=== PATIENT | female | born 1940 | race African-American/Black ===

== ENCOUNTER 2020-10-20 09:48 | Emergency (ER) | payer MEDICARE, MEDICAID ==
[2020-10-20 10:35] LABS: #Basophils 0.1 thou/uL (0.0-0.2); #Eosinphils 0.1 thou/uL (0.0-0.7); #Lymphocytes 2.9 thou/uL (1.20-3.40); #Monocytes 0.7 thou/uL (0.11-0.59); #Neutrophils 9.5 thou/uL (1.40-6.50); %Basophils 0.5 % (0.0-1.0); %Eosinophils 0.5 % (0.0-10.0); %Monocytes 5.2 % (0.0-10.0); %Neutrophils 71.7 % (42.0-75.0); Hemoglobin 13.2 g/dL (12.0-16.0); Mean Corpuscular HGB CONC 30.6 g/dL (32.0-36.0); Mean Corpuscular Hemoglobin 25.3 pg (27.0-31.0); Mean Corpuscular Volume 82.5 fL (78.0-98.0); Mean Platelet Volume 9.2 fL (7.4-10.4); Platelet Count 247 thou/uL (130-400); RBC Distribution Width 14.8 % (11.5-14.5); Red Blood Cell (RBC) Count 5.23 mill/uL (4.20-5.40); White Blood Cell (WBC) Count 13.2 thou/uL (4.8-10.8)
[2020-10-20 10:55] LABS: ALT (SGPT) 34 U/L (8-55); AST (SGOT) 23 U/L (5-34); Albumin 3.8 g/dL (3.4-4.8); Alkaline Phosphatase 131 U/L (40-110); Anion Gap 11 mmol/L (10-20); BUN (Urea Nitrogen) 10 mg/dL (9.8-20.1); Bilirubin, Total 0.3 mg/dL (0.2-1.2); Calc. Creatinine Clearance 0 mL/min (70-130); Calcium 9.2 mg/dL (7.8-10.44); Carbon Dioxide 30 mmol/L (23-31); Chloride 101 mmol/L (98-107); Globulin 3.9 g/dL (2.4-3.5); Glucose 92 mg/dL (83-110); Lipase 28 U/L (8-78); Potassium 3.9 mmol/L (3.5-5.1); Protein, Total 7.7 g/dL (5.8-8.1); Sodium 138 mmol/L (136-145)
[2020-10-20] MEDS ORDERED: Ondansetron PF 4 MG/2 ML Vial ONE (11:01)
[2020-10-20] MEDS ORDERED: Morphine 4 MG/ML VIAL ONE (11:01)
[2020-10-20] MEDS ORDERED: Iopamidol-370 76% 500 ML 1 ML ONE (11:48)
[2020-10-20 14:18] LABS: Bilirubin Negative (Negative); Blood, Urine Negative (Negative); Clarity Turbid (Clear); Glucose, Urine (Dipstick) Normal (Negative); Ketone, Urine Negative (Negative); Leukocyte 500 Leu/uL (Negative); Nitrite 1+ (Negative); Protein, Urine (Dipstick) 20 mg/dL (Neg-Trace); Transitional Epithelial 0-3 HPF (None Seen); Triple Phosphate Crystal Rare HPF (None Seen); Urobilinogen Normal mg/dL (Less than 2); WBC/HPF Greater than 50 HPF (0-3); pH, Urine 8.5 (5.0-9.0)
[2020-10-20 14:20] LABS: Specific Gravity, Urine 1.057 (1.002-1.036)
[2020-10-20 14:27] LABS: RBC/HPF 0-3 HPF (0-3)
[2020-10-20 14:28] LABS: Bacteria/HPF 4+ HPF (None Seen); Yeast-Budding None Seen HPF (None Seen)
[2020-10-20] MEDS ORDERED: cefTRIAXone\\ROCEPHIN 2 GM VIAL ONE (14:51)
== END 2020-10-20 17:26 ==
LOC: ERS 09:48
DX: N39.0 Urinary tract infection, site not specified (principal); E78.00 Pure hypercholesterolemia, unspecified; I25.2 Old myocardial infarction; I11.0 Hypertensive heart disease with heart failure; I50.9 Heart failure, unspecified; E11.9 Type 2 diabetes mellitus without complications; Z79.82 Long term (current) use of aspirin; Z79.899 Other long term (current) drug therapy; Z79.4 Long term (current) use of insulin
CPT/HCPCS: 36415; 51701; 74177; 80053; 81003; 81015; 83605; 83690; 84484; 85025; 93005; 96374; 96375; J0696; J2270; J2405; Q9967

== ENCOUNTER 2020-11-06 16:49 | Emergency (ER) | payer MEDICARE, OTHER ==
[~2020-11-06 16:49] MED LIST: Iopamidol-370 76% 500 ML 1 ML ONE
[2020-11-06] MEDS ORDERED: Dicyclomine 20 MG TAB ONE (17:38)
[2020-11-06 18:26] LABS: #Basophils 0.1 thou/uL (0.0-0.2); #Eosinphils 0.1 thou/uL (0.0-0.7); #Lymphocytes 3.3 thou/uL (1.20-3.40); #Monocytes 0.8 thou/uL (0.11-0.59); %Basophils 0.5 % (0.0-1.0); %Eosinophils 0.6 % (0.0-10.0); %Lymphocytes 21.6 % (21.0-51.0); %Monocytes 5.3 % (0.0-10.0); %Neutrophils 72.1 % (42.0-75.0); Mean Corpuscular HGB CONC 29.8 g/dL (32.0-36.0); Mean Corpuscular Hemoglobin 24.6 pg (27.0-31.0); Mean Corpuscular Volume 82.6 fL (78.0-98.0); Mean Platelet Volume 9.6 fL (7.4-10.4); Platelet Count 248 thou/uL (130-400); RBC Distribution Width 14.7 % (11.5-14.5); Red Blood Cell (RBC) Count 5.29 mill/uL (4.20-5.40); White Blood Cell (WBC) Count 15.3 thou/uL (4.8-10.8)
[2020-11-06 18:45] LABS: Hypochromia SLIGHT = 6-15 cells (100X) (0-5/hpf); MDiff Complete? YES; Platelet Morphology Comment Appears Adequate
[2020-11-06 18:52] LABS: ALT (SGPT) 28 U/L (8-55); AST (SGOT) 21 U/L (5-34); Albumin 3.8 g/dL (3.4-4.8); Alkaline Phosphatase 118 U/L (40-110); Anion Gap 12 mmol/L (10-20); BUN (Urea Nitrogen) 13 mg/dL (9.8-20.1); Bilirubin, Total 0.2 mg/dL (0.2-1.2); Calc. Creatinine Clearance 0 mL/min (70-130); Calcium 9.2 mg/dL (7.8-10.44); Carbon Dioxide 28 mmol/L (23-31); Chloride 99 mmol/L (98-107); Globulin 4.1 g/dL (2.4-3.5); Glucose 142 mg/dL (83-110); Lipase 64 U/L (8-78); Potassium 4.1 mmol/L (3.5-5.1); Protein, Total 7.9 g/dL (5.8-8.1); Sodium 135 mmol/L (136-145)
[2020-11-06 18:54] LABS: Bilirubin Negative (Negative); Blood, Urine Negative (Negative); Clarity Clear (Clear); Glucose, Urine (Dipstick) Normal (Negative); Ketone, Urine Negative (Negative); Leukocyte Negative Leu/uL (Negative); Nitrite Negative (Negative); Protein, Urine (Dipstick) Negative (Neg-Trace); Specific Gravity, Urine 1.009 (1.002-1.036); Urobilinogen Normal mg/dL (Less than 2); pH, Urine 7.5 (5.0-9.0)
== END 2020-11-06 21:29 | disposition home or self-care (01) ==
LOC: ERS 16:49
DX: K86.89 Other specified diseases of pancreas (principal); K59.00 Constipation, unspecified; I25.2 Old myocardial infarction; I25.10 Atherosclerotic heart disease of native coronary artery without angina pectoris; I11.0 Hypertensive heart disease with heart failure; E78.5 Hyperlipidemia, unspecified; I50.9 Heart failure, unspecified; E11.9 Type 2 diabetes mellitus without complications; Z86.73 Personal history of transient ischemic attack (TIA), and cerebral infarction without residual deficits; Z79.82 Long term (current) use of aspirin; Z79.4 Long term (current) use of insulin; Z79.01 Long term (current) use of anticoagulants; Z79.52 Long term (current) use of systemic steroids; Z79.899 Other long term (current) drug therapy
CPT/HCPCS: 36415; 74177; 80053; 81003; 83690; 84484; 85025; 93005; Q9967

== ENCOUNTER 2021-02-16 22:48 | Observation (INO) | payer MEDICARE, MEDICAID ==
[2021-02-17] LABS: #Basophils 0.1 thou/uL (0.0-0.2); #Eosinphils 0.1 thou/uL (0.0-0.7); #Monocytes 0.8 thou/uL (0.11-0.59); #Neutrophils 13.1 thou/uL (1.40-6.50); %Basophils 0.3 % (0.0-1.0); %Eosinophils 0.3 % (0.0-10.0); %Lymphocytes 17.5 % (21.0-51.0); %Monocytes 4.8 % (0.0-10.0); %Neutrophils 77.1 % (42.0-75.0); Hemoglobin 13.3 g/dL (12.0-16.0); Mean Corpuscular HGB CONC 31.2 g/dL (32.0-36.0); Mean Corpuscular Hemoglobin 25.7 pg (27.0-31.0); Mean Corpuscular Volume 82.4 fL (78.0-98.0); Mean Platelet Volume 9.2 fL (7.4-10.4); Platelet Count 236 thou/uL (130-400); RBC Distribution Width 14.7 % (11.5-14.5); Red Blood Cell (RBC) Count 5.18 mill/uL (4.20-5.40)
[2021-02-17 00:28] LABS: ALT (SGPT) 22 U/L (8-55); AST (SGOT) 26 U/L (5-34); Albumin 3.7 g/dL (3.4-4.8); Alkaline Phosphatase 97 U/L (40-110); Anion Gap 18 mmol/L (10-20); BUN (Urea Nitrogen) 16 mg/dL (9.8-20.1); Bilirubin, Total 0.2 mg/dL (0.2-1.2); Calc. Creatinine Clearance 0 mL/min (70-130); Carbon Dioxide 24 mmol/L (23-31); Chloride 97 mmol/L (98-107); Globulin 4.8 g/dL (2.4-3.5); Glucose 116 mg/dL (83-110); Potassium 4.9 mmol/L (3.5-5.1); Protein, Total 8.5 g/dL (5.8-8.1); Sodium 134 mmol/L (136-145)
[2021-02-17 01:58] LABS: SARS-CoV-2 NAA Rapid Test Not Detected (NotDetected)
[2021-02-17] MEDS ORDERED: Enoxaparin Sodium 30 MG/0.3 ML SYRINGE ONE (04:56)
[2021-02-17] MEDS ORDERED: Enoxaparin Sodium 100 MG/ML SYRINGE ONE ×3 (04:56→05:20)
[2021-02-17] MEDS ORDERED: Acetaminophen 325 MG TAB PO PRN (05:08)
[2021-02-17] MEDS ORDERED: Ondansetron PF 4 MG/2 ML Vial IVP PRN (05:08)
[2021-02-17] MEDS ORDERED: Dextrose 50% Abboject 50 ML SYRINGE SLOW IVP PRN (05:15)
[2021-02-17] MEDS ORDERED: Dextrose 5% in Water 1,000 ML IV PRN (05:15)
[2021-02-17] MEDS ORDERED: HumaLOG 300 UNITS/3 ML VIAL SC PRN ×2 (05:15)
[2021-02-17 05:22] LABS: Troponin I 0.066 ng/mL (< 0.028)
[2021-02-17] MEDS ORDERED: Enoxaparin Sodium 120 MG/0.8 ML SYRINGE SC SCH (05:30)
[2021-02-17 08:04] LABS: Magnesium 2.1 mg/dL (1.6-2.6)
[2021-02-17 08:47] LABS: Troponin I 0.102 ng/mL (< 0.028)
[2021-02-17] MEDS ORDERED: Metoprolol Tartrate 25 MG TAB ONE (08:59)
[2021-02-17 09:13] LABS: Bilirubin Negative (Negative); Blood, Urine Negative (Negative); Clarity Turbid (Clear); Glucose, Urine (Dipstick) Normal (Negative); Ketone, Urine Negative (Negative); Leukocyte 75 Leu/uL (Negative); Nitrite Negative (Negative); Protein, Urine (Dipstick) Negative (Neg-Trace); RBC/HPF 0-3 HPF (0-3); Specific Gravity, Urine 1.012 (1.002-1.036); Squamous Epithelial 0-3 HPF (0-3); Urobilinogen Normal mg/dL (Less than 2); pH, Urine 6.5 (5.0-9.0)
[2021-02-17 09:14] LABS: Bacteria/HPF 1+ HPF (None Seen); Urine Culture Reflex Yes Yes
[2021-02-17] MEDS: Metoprolol Tartrate 25 MG TAB PO SCH ×2 (09:14→20:27)
[2021-02-17 11:35] VITALS: BMI 35.8
[2021-02-17] MEDS: Sodium Chloride 0.9% 1,000 ML IV SCH (12:19)
[2021-02-17] MEDS ORDERED: hydrALAZINE 20 MG/ML VIAL SLOW IVP PRN (16:21)
[2021-02-17] MEDS ORDERED: cloNIDine 0.1 MG TAB PO PRN (16:32)
[2021-02-17] MEDS ORDERED: Apixaban 5 MG TAB PO SCH (17:00)
[2021-02-17] MEDS: hydrALAZINE 25 MG TAB PO SCH ×2 (17:42→20:26)
[2021-02-17] MEDS ORDERED: Dronedarone HCl 400 MG TAB PO SCH (17:45)
[2021-02-17] MEDS: metFORMIN 500 MG TAB PO SCH (18:27)
[2021-02-17] MEDS: Ferrous Sulfate 325 MG TAB PO SCH (20:26)
[2021-02-17] MEDS ORDERED: Lantus 1000 UNITS/10 ML VIAL SC SCH (21:00)
[2021-02-17] MEDS ORDERED: Zonisamide 100 MG CAP PO SCH (21:00)
[2021-02-18 06:19] LABS: #Eosinphils 0.1 thou/uL (0.0-0.7); #Lymphocytes 2.7 thou/uL (1.20-3.40); #Monocytes 0.8 thou/uL (0.11-0.59); #Neutrophils 9.1 thou/uL (1.40-6.50); %Basophils 0.3 % (0.0-1.0); %Eosinophils 0.5 % (0.0-10.0); %Lymphocytes 21.4 % (21.0-51.0); %Neutrophils 71.9 % (42.0-75.0); Hemoglobin 12.8 g/dL (12.0-16.0); Mean Corpuscular HGB CONC 32.3 g/dL (32.0-36.0); Mean Corpuscular Hemoglobin 26.3 pg (27.0-31.0); Mean Corpuscular Volume 81.5 fL (78.0-98.0); Mean Platelet Volume 8.8 fL (7.4-10.4); Platelet Count 240 thou/uL (130-400); RBC Distribution Width 14.6 % (11.5-14.5); Red Blood Cell (RBC) Count 4.88 mill/uL (4.20-5.40); White Blood Cell (WBC) Count 12.6 thou/uL (4.8-10.8)
[2021-02-18 06:40] LABS: Anion Gap 14 mmol/L (10-20); BUN (Urea Nitrogen) 12 mg/dL (9.8-20.1); Calc. Creatinine Clearance 98 mL/min (70-130); Calcium 9.5 mg/dL (7.8-10.44); Carbon Dioxide 25 mmol/L (23-31); Chloride 102 mmol/L (98-107); Glucose 80 mg/dL (83-110); Magnesium 2.1 mg/dL (1.6-2.6); Sodium 137 mmol/L (136-145)
[2021-02-18] MEDS ORDERED: Dronedarone HCl 400 MG TAB PO SCH (08:00)
[2021-02-18] MEDS: hydrALAZINE 25 MG TAB PO SCH (08:06)
[2021-02-18] MEDS: Ferrous Sulfate 325 MG TAB PO SCH (08:07)
[2021-02-18] MEDS: metFORMIN 500 MG TAB PO SCH (08:07)
[2021-02-18] MEDS: Metoprolol Tartrate 25 MG TAB PO SCH (08:08)
[2021-02-18] MEDS ORDERED: Spironolactone 25 MG TAB PO SCH (09:00)
[2021-02-18] MEDS ORDERED: Nitrofurantoin Monohyd/M-Cryst 100 MG CAP PO SCH (09:00)
[2021-02-18] MEDS ORDERED: Apixaban 5 MG TAB PO SCH (09:00)
[2021-02-18] MEDS ORDERED: Furosemide 20 MG TAB PO SCH (09:00)
[2021-02-18] MEDS ORDERED: Amlodipine 10 MG TAB PO SCH (09:00)
[2021-02-18] MEDS ORDERED: Aspirin 325 MG TAB PO SCH (09:00)
[2021-02-18] MEDS ORDERED: Losartan 25 MG TAB PO SCH (09:00)
[2021-02-18] MEDS ORDERED: Ezetimibe 10 MG TAB PO SCH (09:00)
[2021-02-18] MEDS ORDERED: Bisoprolol Fumarate 5 MG TAB PO SCH (09:00)
[2021-02-18 11:25] VITALS: BP 136/67; TEMP 98
[2021-02-18] MEDS: Sodium Chloride 0.9% 1,000 ML IV SCH (12:26)
[2021-02-21] MEDS ORDERED: Dulaglutide [Trulicity] 0.75 MG/0.5 ML Pen.Injctr SC SCH (09:00)
== END 2021-02-18 14:52 ==
LOC: ERS 22:48 → NEURO 02-17 01:40 → ERHOLD 02-17 01:49 → NEURO 02-17 11:24
PROVIDERS: ADMIT Internal Medicine; ATTEND Internal Medicine
DX: I48.91 Unspecified atrial fibrillation (principal); N39.0 Urinary tract infection, site not specified; B96.20 Unspecified Escherichia coli [E. coli] as the cause of diseases classified elsewhere; E87.1 Hypo-osmolality and hyponatremia; D72.829 Elevated white blood cell count, unspecified; I25.10 Atherosclerotic heart disease of native coronary artery without angina pectoris; I11.0 Hypertensive heart disease with heart failure; I50.32 Chronic diastolic (congestive) heart failure; E78.5 Hyperlipidemia, unspecified; E11.9 Type 2 diabetes mellitus without complications; I69.351 Hemiplegia and hemiparesis following cerebral infarction affecting right dominant side; E78.00 Pure hypercholesterolemia, unspecified; K21.9 Gastro-esophageal reflux disease without esophagitis; Z79.4 Long term (current) use of insulin; Z79.82 Long term (current) use of aspirin; Z79.84 Long term (current) use of oral hypoglycemic drugs; Z79.899 Other long term (current) drug therapy; Z95.1 Presence of aortocoronary bypass graft; Z99.3 Dependence on wheelchair; Z20.822 Contact with and (suspected) exposure to COVID-19
CPT/HCPCS: 71045; 80048; 80053; 81001; 82962 ×2; 83735 ×2; 83880; 84443; 84484 ×3; 85025 ×2; 85379; 87077; 87086; 87186; 93005; 93306; G0378 ×3; U0002; 36415; 36416; J1650; J1815; J7050

== ENCOUNTER 2021-03-25 09:30 | Inpatient (IN) | payer MEDICARE, MEDICAID ==
[2021-03-25] MEDS ORDERED: Cefepime 1 GM VIAL ONE (10:01)
[2021-03-25] MEDS ORDERED: Acetaminophen 500 MG TAB ONE (10:01)
[2021-03-25] MEDS ORDERED: Vancomycin 1 GM/200 ML BAG ONE (10:01)
[2021-03-25 10:24] LABS: #Eosinphils 0.1 thou/uL (0.0-0.7); #Lymphocytes 2.8 thou/uL (1.20-3.40); #Monocytes 0.8 thou/uL (0.11-0.59); #Neutrophils 13.8 thou/uL (1.40-6.50); %Eosinophils 0.4 % (0.0-10.0); %Monocytes 4.7 % (0.0-10.0); %Neutrophils 78.8 % (42.0-75.0); Hemoglobin 11.3 g/dL (12.0-16.0); Mean Corpuscular HGB CONC 30.5 g/dL (32.0-36.0); Mean Corpuscular Hemoglobin 25.3 pg (27.0-31.0); Mean Corpuscular Volume 82.9 fL (78.0-98.0); Mean Platelet Volume 8.3 fL (7.4-10.4); Platelet Count 290 thou/uL (130-400); RBC Distribution Width 14.7 % (11.5-14.5); Red Blood Cell (RBC) Count 4.47 mill/uL (4.20-5.40); White Blood Cell (WBC) Count 17.6 thou/uL (4.8-10.8)
[2021-03-25 10:43] LABS: ALT (SGPT) 19 U/L (8-55); AST (SGOT) 17 U/L (5-34); Albumin 3.7 g/dL (3.4-4.8); Alkaline Phosphatase 67 U/L (40-110); Anion Gap 11 mmol/L (10-20); BUN (Urea Nitrogen) 11 mg/dL (9.8-20.1); Bilirubin, Total 0.2 mg/dL (0.2-1.2); Calc. Creatinine Clearance 0 mL/min (70-130); Calcium 9.8 mg/dL (7.8-10.44); Carbon Dioxide 29 mmol/L (23-31); Chloride 99 mmol/L (98-107); Globulin 3.9 g/dL (2.4-3.5); Glucose 141 mg/dL (83-110); Lipase 41 U/L (8-78); Potassium 3.8 mmol/L (3.5-5.1); Protein, Total 7.6 g/dL (5.8-8.1); Sodium 135 mmol/L (136-145)
[2021-03-25 11:20] LABS: Bilirubin Negative (Negative); Blood, Urine Negative (Negative); Clarity Clear (Clear); Glucose, Urine (Dipstick) Normal (Negative); Ketone, Urine Negative (Negative); Leukocyte Negative Leu/uL (Negative); Nitrite Negative (Negative); Protein, Urine (Dipstick) Negative (Neg-Trace); Specific Gravity, Urine 1.034 (1.002-1.036); Urobilinogen Normal mg/dL (Less than 2); pH, Urine 7.5 (5.0-9.0)
[2021-03-25 14:28] LABS: SARS-CoV-2 NAA Rapid Test Not Detected (NotDetected)
[2021-03-25] MEDS ORDERED: Aspirin Chewable 81 MG TAB PO SCH (14:30)
[2021-03-25] MEDS ORDERED: Acetaminophen 325 MG TAB PO PRN (14:38)
[2021-03-25] MEDS ORDERED: HYDROcodone/Acetaminophen 5/325 mg Tablet PO PRN (14:38)
[2021-03-25] MEDS ORDERED: Ondansetron PF 4 MG/2 ML Vial IVP PRN (14:38)
[2021-03-25] MEDS ORDERED: Guaifenesin DM 100-10/5 ML UDCUP PO PRN (14:38)
[2021-03-25] MEDS ORDERED: Senokot S 8.6-50 MG TAB PO PRN (14:38)
[2021-03-25] MEDS ORDERED: Dextrose 5% in Water 1,000 ML IV PRN (14:41)
[2021-03-25] MEDS ORDERED: HumaLOG 300 UNITS/3 ML VIAL SC PRN (14:41)
[2021-03-25] MEDS ORDERED: Dextrose 50% Abboject 50 ML SYRINGE SLOW IVP PRN (14:41)
[2021-03-25 15:50] LABS: Troponin I 0.017 ng/mL (< 0.028)
[2021-03-25] MEDS: Famotidine 20 MG TAB PO SCH (20:41)
[2021-03-26] MEDS: Calcium Carbonate 500 MG ChewTAB PO PRN (00:14)
[2021-03-26] MEDS: Nitroglycerin 0.4 MG TAB (25 Tab Bottle) SL PRN ×3 (00:47→00:58)
[2021-03-26] MEDS ORDERED: Morphine 4 MG/ML VIAL SLOW IVP PRN (02:00)
[2021-03-26 02:04] LABS: Troponin I 0.022 ng/mL (< 0.028)
[2021-03-26 04:55] LABS: #Basophils 0.1 thou/uL (0.0-0.2); #Eosinphils 0.1 thou/uL (0.0-0.7); #Lymphocytes 2.7 thou/uL (1.20-3.40); #Monocytes 0.8 thou/uL (0.11-0.59); #Neutrophils 9.6 thou/uL (1.40-6.50); %Basophils 0.4 % (0.0-1.0); %Eosinophils 1.1 % (0.0-10.0); %Lymphocytes 20.3 % (21.0-51.0); %Monocytes 6.1 % (0.0-10.0); %Neutrophils 72.1 % (42.0-75.0); Hemoglobin A1c 5.5 % (4.0-6.0); Mean Corpuscular HGB CONC 30.3 g/dL (32.0-36.0); Mean Corpuscular Hemoglobin 25.4 pg (27.0-31.0); Mean Corpuscular Volume 83.6 fL (78.0-98.0); Mean Platelet Volume 8.2 fL (7.4-10.4); Platelet Count 253 thou/uL (130-400); RBC Distribution Width 14.7 % (11.5-14.5); Red Blood Cell (RBC) Count 4.34 mill/uL (4.20-5.40); White Blood Cell (WBC) Count 13.3 thou/uL (4.8-10.8)
[2021-03-26 06:24] LABS: Anion Gap 11 mmol/L (10-20); BUN (Urea Nitrogen) 8 mg/dL (9.8-20.1); Calc. Creatinine Clearance 102 mL/min (70-130); Calcium 9.4 mg/dL (7.8-10.44); Carbon Dioxide 27 mmol/L (23-31); Cardiac Risk 2.7 (Less than 4.5); Chloride 104 mmol/L (98-107); Cholesterol 138 mg/dl (< 200 Desired); Glucose 122 mg/dL (83-110); HDL Cholesterol 52 mg/dL (>60 Neg Risk); LDL Cholesterol, Calculated 72 mg/dL; Sodium 138 mmol/L (136-145); Triglycerides 70 mg/dL (Less than 150)
[2021-03-26] MEDS ORDERED: ADENOSINE 60 MG/20 ML VIAL ONE (08:36)
[2021-03-26] MEDS ORDERED: Nitroglycerin 4.9 GM Bottle ONE (08:52)
[2021-03-26] MEDS ORDERED: Enoxaparin Sodium 40 MG/0.4 ML SYRINGE SC SCH (09:00)
[2021-03-26] MEDS ORDERED: Insulin Glargine 8 UNITS in Pre-Filled Syringe 1 EACH SC SCH (09:00)
[2021-03-26] MEDS: Lantus 1000 UNITS/10 ML VIAL SC SCH (10:32)
[2021-03-26] MEDS: Aspirin Chewable 81 MG TAB PO SCH ×2 (10:33→13:25)
[2021-03-26] MEDS: Famotidine 20 MG TAB PO SCH ×3 (10:33→21:38)
[2021-03-26] MEDS ORDERED: Metoprolol Tartrate 25 MG TAB PO SCH ×2 (12:59→21:00)
[2021-03-26] MEDS ORDERED: cloNIDine 0.1 MG TAB PO PRN (13:04)
[2021-03-26] MEDS ORDERED: Dicyclomine 10 MG CAP PO PRN (13:04)
[2021-03-26] MEDS ORDERED: Acetaminophen 325 MG TAB PO PRN (13:04)
[2021-03-26] MEDS: hydrALAZINE 25 MG TAB PO SCH ×2 (17:04→21:38)
[2021-03-26] MEDS: Dronedarone HCl 400 MG TAB PO SCH (17:05)
[2021-03-26] MEDS ORDERED: Apixaban 5 MG TAB PO SCH (21:00)
[2021-03-26] MEDS: Atorvastatin Calcium 40 MG TAB PO SCH (21:37)
[2021-03-26] MEDS: Ezetimibe 10 MG TAB PO SCH (21:37)
[2021-03-26] MEDS: Acetaminophen ER (8hr) 650 MG TAB PO SCH (21:37)
[2021-03-26] MEDS: Metoprolol Tartrate 25 MG TAB PO SCH (21:38)
[2021-03-27 08:13] LABS: Mean Corpuscular HGB CONC 29.8 g/dL (32.0-36.0); Mean Platelet Volume 8.2 fL (7.4-10.4); Platelet Count 289 thou/uL (130-400); RBC Distribution Width 14.8 % (11.5-14.5); White Blood Cell (WBC) Count 12.6 thou/uL (4.8-10.8)
[2021-03-27 08:37] LABS: ALT (SGPT) 21 U/L (8-55); AST (SGOT) 29 U/L (5-34); Albumin 3.5 g/dL (3.4-4.8); Alkaline Phosphatase 67 U/L (40-110); Anion Gap 14 mmol/L (10-20); BUN (Urea Nitrogen) 8 mg/dL (9.8-20.1); Bilirubin, Total 0.3 mg/dL (0.2-1.2); Calc. Creatinine Clearance 86 mL/min (70-130); Calcium 9.2 mg/dL (7.8-10.44); Carbon Dioxide 23 mmol/L (23-31); Chloride 105 mmol/L (98-107); Globulin 4.1 g/dL (2.4-3.5); Glucose 121 mg/dL (83-110); Potassium 4.3 mmol/L (3.5-5.1); Protein, Total 7.6 g/dL (5.8-8.1); Sodium 138 mmol/L (136-145)
[2021-03-27 08:42] LABS: #Eosinphils 0.2 thou/uL (0.0-0.7); #Lymphocytes 2.9 thou/uL (1.20-3.40); #Monocytes 0.8 thou/uL (0.11-0.59); #Neutrophils 8.6 thou/uL (1.40-6.50); %Basophils 0.2 % (0.0-1.0); %Eosinophils 1.3 % (0.0-10.0); %Lymphocytes 23.4 % (21.0-51.0); %Monocytes 6.3 % (0.0-10.0); %Neutrophils 68.7 % (42.0-75.0); Band 1 % (5-11); Eosinophils 1 % (0-10); Hypochromia SLIGHT = 6-15 cells (100X) (0-5/hpf); Lymphocytes 24 % (21-51); MDiff Complete? YES; Monocytes 5 % (0-10); Neutrophil 69 % (42-75); Platelet Morphology Comment Appears Adequate; Polychromasia SLIGHT = 2-3 cells (100X) (0-2/hpf)
[2021-03-27] MEDS: Ascorbic Acid 500 mg Chewable Tablet PO SCH (08:48)
[2021-03-27] MEDS: Zinc Sulfate 220 MG CAP PO SCH (08:48)
[2021-03-27] MEDS: hydrALAZINE 25 MG TAB PO SCH ×4 (08:48→21:14)
[2021-03-27] MEDS: Aspirin Chewable 81 MG TAB PO SCH (08:48)
[2021-03-27] MEDS: Multivitamin W/ Minerals 1 TAB PO SCH (08:49)
[2021-03-27] MEDS: Polyethylene Glycol 3350 17 GM Packet PO SCH (08:50)
[2021-03-27] MEDS: Cholecalciferol 1,000 UNITS (25 MCG) TAB PO SCH (08:50)
[2021-03-27] MEDS: Dronedarone HCl 400 MG TAB PO SCH ×2 (08:50→16:08)
[2021-03-27] MEDS: Metoprolol Tartrate 25 MG TAB PO SCH ×2 (08:50→21:14)
[2021-03-27] MEDS: Amlodipine 10 MG TAB PO SCH (08:50)
[2021-03-27] MEDS: Famotidine 20 MG TAB PO SCH ×2 (08:50→21:11)
[2021-03-27] MEDS: Furosemide 20 MG TAB PO SCH (08:50)
[2021-03-27] MEDS ORDERED: Aspirin 325 MG TAB PO SCH (09:00)
[2021-03-27] MEDS: Lantus 1000 UNITS/10 ML VIAL SC SCH (09:54)
[2021-03-27] MEDS ORDERED: Colchicine 0.6 MG TAB PO SCH (15:00)
[2021-03-27] MEDS: Colchicine 0.6 MG TAB PO SCH (21:12)
[2021-03-27] MEDS: Acetaminophen ER (8hr) 650 MG TAB PO SCH (21:12)
[2021-03-27] MEDS: Atorvastatin Calcium 40 MG TAB PO SCH (21:14)
[2021-03-27] MEDS: Ezetimibe 10 MG TAB PO SCH (21:14)
[2021-03-28 04:30] LABS: #Eosinphils 0.2 thou/uL (0.0-0.7); #Lymphocytes 3.1 thou/uL (1.20-3.40); #Monocytes 0.9 thou/uL (0.11-0.59); #Neutrophils 10.3 thou/uL (1.40-6.50); %Basophils 0.1 % (0.0-1.0); %Eosinophils 1.4 % (0.0-10.0); %Lymphocytes 21.4 % (21.0-51.0); %Monocytes 5.9 % (0.0-10.0); %Neutrophils 71.2 % (42.0-75.0); Hemoglobin 11.6 g/dL (12.0-16.0); Mean Corpuscular HGB CONC 30.8 g/dL (32.0-36.0); Mean Corpuscular Hemoglobin 25.6 pg (27.0-31.0); Mean Corpuscular Volume 83.1 fL (78.0-98.0); Mean Platelet Volume 8.7 fL (7.4-10.4); Platelet Count 294 thou/uL (130-400); RBC Distribution Width 14.9 % (11.5-14.5); Red Blood Cell (RBC) Count 4.55 mill/uL (4.20-5.40); White Blood Cell (WBC) Count 14.5 thou/uL (4.8-10.8)
[2021-03-28 04:46] LABS: ALT (SGPT) 26 U/L (8-55); AST (SGOT) 21 U/L (5-34); Albumin 3.4 g/dL (3.4-4.8); Alkaline Phosphatase 70 U/L (40-110); Anion Gap 13 mmol/L (10-20); BUN (Urea Nitrogen) 8 mg/dL (9.8-20.1); Bilirubin, Total 0.4 mg/dL (0.2-1.2); Calc. Creatinine Clearance 89 mL/min (70-130); Calcium 8.7 mg/dL (7.8-10.44); Carbon Dioxide 27 mmol/L (23-31); Chloride 102 mmol/L (98-107); Globulin 3.6 g/dL (2.4-3.5); Glucose 122 mg/dL (83-110); Potassium 3.6 mmol/L (3.5-5.1); Sodium 138 mmol/L (136-145)
[2021-03-28] MEDS: Multivitamin W/ Minerals 1 TAB PO SCH (08:44)
[2021-03-28] MEDS: Amlodipine 10 MG TAB PO SCH (08:44)
[2021-03-28] MEDS: Aspirin Chewable 81 MG TAB PO SCH (08:44)
[2021-03-28] MEDS: Dronedarone HCl 400 MG TAB PO SCH ×2 (08:45→17:25)
[2021-03-28] MEDS: Lantus 1000 UNITS/10 ML VIAL SC SCH (08:45)
[2021-03-28] MEDS: Zinc Sulfate 220 MG CAP PO SCH (08:45)
[2021-03-28] MEDS: Ascorbic Acid 500 mg Chewable Tablet PO SCH (08:45)
[2021-03-28] MEDS: Metoprolol Tartrate 25 MG TAB PO SCH ×2 (08:45→21:23)
[2021-03-28] MEDS: hydrALAZINE 25 MG TAB PO SCH ×4 (08:45→21:22)
[2021-03-28] MEDS: Famotidine 20 MG TAB PO SCH ×2 (08:45→21:21)
[2021-03-28] MEDS: Colchicine 0.6 MG TAB PO SCH ×2 (08:45→21:21)
[2021-03-28] MEDS: Cholecalciferol 1,000 UNITS (25 MCG) TAB PO SCH (08:45)
[2021-03-28] MEDS: Furosemide 20 MG TAB PO SCH (08:45)
[2021-03-28] MEDS: Polyethylene Glycol 3350 17 GM Packet PO SCH (08:46)
[2021-03-28] MEDS: Acetaminophen ER (8hr) 650 MG TAB PO SCH (21:21)
[2021-03-28] MEDS: Atorvastatin Calcium 40 MG TAB PO SCH (21:22)
[2021-03-28] MEDS: Apixaban 5 MG TAB PO SCH (21:23)
[2021-03-28] MEDS: Ferrous Sulfate 325 MG TAB PO SCH (21:23)
[2021-03-28] MEDS: Ezetimibe 10 MG TAB PO SCH (21:23)
[2021-03-29 04:25] LABS: #Basophils 0.1 thou/uL (0.0-0.2); #Eosinphils 0.2 thou/uL (0.0-0.7); #Lymphocytes 3.5 thou/uL (1.20-3.40); #Monocytes 0.9 thou/uL (0.11-0.59); %Basophils 0.4 % (0.0-1.0); %Eosinophils 1.3 % (0.0-10.0); %Lymphocytes 23.8 % (21.0-51.0); %Monocytes 6.3 % (0.0-10.0); %Neutrophils 68.3 % (42.0-75.0); Hemoglobin 12.8 g/dL (12.0-16.0); Mean Corpuscular HGB CONC 29.9 g/dL (32.0-36.0); Mean Corpuscular Hemoglobin 25.1 pg (27.0-31.0); Mean Corpuscular Volume 83.8 fL (78.0-98.0); Mean Platelet Volume 8.3 fL (7.4-10.4); Platelet Count 303 thou/uL (130-400); RBC Distribution Width 14.7 % (11.5-14.5); Red Blood Cell (RBC) Count 5.11 mill/uL (4.20-5.40); White Blood Cell (WBC) Count 14.7 thou/uL (4.8-10.8)
[2021-03-29 04:36] LABS: ALT (SGPT) 30 U/L (8-55); AST (SGOT) 30 U/L (5-34); Albumin 3.6 g/dL (3.4-4.8); Alkaline Phosphatase 82 U/L (40-110); Anion Gap 11 mmol/L (10-20); BUN (Urea Nitrogen) 8 mg/dL (9.8-20.1); Bilirubin, Total 0.3 mg/dL (0.2-1.2); Calc. Creatinine Clearance 94 mL/min (70-130); Calcium 8.8 mg/dL (7.8-10.44); Carbon Dioxide 25 mmol/L (23-31); Chloride 103 mmol/L (98-107); Globulin 3.8 g/dL (2.4-3.5); Glucose 125 mg/dL (83-110); Potassium 3.6 mmol/L (3.5-5.1); Protein, Total 7.4 g/dL (5.8-8.1); Sodium 135 mmol/L (136-145)
[2021-03-29] MEDS ORDERED: Senokot 8.6 MG TAB PO PRN (07:08)
[2021-03-29] MEDS: Ferrous Sulfate 325 MG TAB PO SCH ×2 (09:31→21:38)
[2021-03-29] MEDS: Aspirin Chewable 81 MG TAB PO SCH (09:31)
[2021-03-29] MEDS: Apixaban 5 MG TAB PO SCH ×2 (09:32→21:38)
[2021-03-29] MEDS: Zinc Sulfate 220 MG CAP PO SCH (09:32)
[2021-03-29] MEDS: Metoprolol Tartrate 25 MG TAB PO SCH ×2 (09:32→21:38)
[2021-03-29] MEDS: Dronedarone HCl 400 MG TAB PO SCH ×2 (09:32→16:43)
[2021-03-29] MEDS: Losartan 25 MG TAB PO SCH (09:32)
[2021-03-29] MEDS: Famotidine 20 MG TAB PO SCH ×2 (09:32→21:38)
[2021-03-29] MEDS: Cholecalciferol 1,000 UNITS (25 MCG) TAB PO SCH (09:32)
[2021-03-29] MEDS: Multivitamin W/ Minerals 1 TAB PO SCH (09:32)
[2021-03-29] MEDS: hydrALAZINE 25 MG TAB PO SCH ×4 (09:32→21:38)
[2021-03-29] MEDS: Furosemide 20 MG TAB PO SCH (09:32)
[2021-03-29] MEDS: Amlodipine 10 MG TAB PO SCH (09:32)
[2021-03-29] MEDS: Ascorbic Acid 500 mg Chewable Tablet PO SCH (09:32)
[2021-03-29] MEDS: Colchicine 0.6 MG TAB PO SCH ×2 (09:32→21:38)
[2021-03-29] MEDS: Lantus 1000 UNITS/10 ML VIAL SC SCH (09:35)
[2021-03-29] MEDS: Polyethylene Glycol 3350 17 GM Packet PO SCH (10:32)
[2021-03-29] MEDS: Acetaminophen ER (8hr) 650 MG TAB PO SCH (21:38)
[2021-03-29] MEDS: Ezetimibe 10 MG TAB PO SCH (21:38)
[2021-03-29] MEDS: Atorvastatin Calcium 40 MG TAB PO SCH (21:39)
[2021-03-30] MEDS: Calcium Carbonate 500 MG ChewTAB PO PRN (00:44)
[2021-03-30 04:45] LABS: #Eosinphils 0.2 thou/uL (0.0-0.7); #Lymphocytes 3.4 thou/uL (1.20-3.40); #Monocytes 1.1 thou/uL (0.11-0.59); #Neutrophils 9.2 thou/uL (1.40-6.50); %Basophils 0.2 % (0.0-1.0); %Eosinophils 1.7 % (0.0-10.0); %Lymphocytes 24.5 % (21.0-51.0); %Monocytes 7.6 % (0.0-10.0); Hemoglobin 12.7 g/dL (12.0-16.0); Mean Corpuscular HGB CONC 30.7 g/dL (32.0-36.0); Mean Corpuscular Hemoglobin 25.2 pg (27.0-31.0); Mean Corpuscular Volume 82.1 fL (78.0-98.0); Mean Platelet Volume 8.7 fL (7.4-10.4); Platelet Count 321 thou/uL (130-400); RBC Distribution Width 14.7 % (11.5-14.5); Red Blood Cell (RBC) Count 5.05 mill/uL (4.20-5.40); White Blood Cell (WBC) Count 13.9 thou/uL (4.8-10.8)
[2021-03-30 05:04] LABS: ALT (SGPT) 36 U/L (8-55); AST (SGOT) 39 U/L (5-34); Albumin 3.5 g/dL (3.4-4.8); Alkaline Phosphatase 97 U/L (40-110); Anion Gap 17 mmol/L (10-20); BUN (Urea Nitrogen) 9 mg/dL (9.8-20.1); Bilirubin, Total 0.3 mg/dL (0.2-1.2); Calc. Creatinine Clearance 81 mL/min (70-130); Calcium 8.8 mg/dL (7.8-10.44); Carbon Dioxide 19 mmol/L (23-31); Chloride 102 mmol/L (98-107); Globulin 3.8 g/dL (2.4-3.5); Glucose 105 mg/dL (83-110); Potassium 3.7 mmol/L (3.5-5.1); Protein, Total 7.3 g/dL (5.8-8.1); Sodium 134 mmol/L (136-145)
[2021-03-30] MEDS: Famotidine 20 MG TAB PO SCH ×2 (11:22→20:44)
[2021-03-30] MEDS: Colchicine 0.6 MG TAB PO SCH ×2 (11:22→20:44)
[2021-03-30] MEDS: Furosemide 20 MG TAB PO SCH (11:23)
[2021-03-30] MEDS: Ascorbic Acid 500 mg Chewable Tablet PO SCH (11:23)
[2021-03-30] MEDS: hydrALAZINE 25 MG TAB PO SCH ×4 (11:23→20:44)
[2021-03-30] MEDS: Multivitamin W/ Minerals 1 TAB PO SCH (11:23)
[2021-03-30] MEDS: Cholecalciferol 1,000 UNITS (25 MCG) TAB PO SCH (11:23)
[2021-03-30] MEDS: Zinc Sulfate 220 MG CAP PO SCH ×2 (11:23→11:27)
[2021-03-30] MEDS: Amlodipine 10 MG TAB PO SCH (11:25)
[2021-03-30] MEDS: Aspirin Chewable 81 MG TAB PO SCH (11:25)
[2021-03-30] MEDS: Apixaban 5 MG TAB PO SCH ×2 (11:25→20:44)
[2021-03-30] MEDS: Metoprolol Tartrate 25 MG TAB PO SCH ×2 (11:25→20:44)
[2021-03-30] MEDS: Losartan 25 MG TAB PO SCH (11:26)
[2021-03-30] MEDS: Polyethylene Glycol 3350 17 GM Packet PO SCH (11:27)
[2021-03-30] MEDS: Dronedarone HCl 400 MG TAB PO SCH ×2 (12:01→17:47)
[2021-03-30] MEDS: Lantus 1000 UNITS/10 ML VIAL SC SCH (12:02)
[2021-03-30] MEDS: Ferrous Sulfate 325 MG TAB PO SCH (12:02)
[2021-03-30] MEDS: Ezetimibe 10 MG TAB PO SCH (20:44)
[2021-03-30] MEDS: Atorvastatin Calcium 40 MG TAB PO SCH (20:44)
[2021-03-30] MEDS: Acetaminophen ER (8hr) 650 MG TAB PO SCH (20:44)
[2021-03-31 04:41] LABS: #Eosinphils 0.2 thou/uL (0.0-0.7); #Lymphocytes 2.8 thou/uL (1.20-3.40); #Monocytes 0.9 thou/uL (0.11-0.59); #Neutrophils 7.9 thou/uL (1.40-6.50); %Basophils 0.3 % (0.0-1.0); %Eosinophils 1.4 % (0.0-10.0); %Lymphocytes 23.9 % (21.0-51.0); %Monocytes 7.5 % (0.0-10.0); %Neutrophils 66.9 % (42.0-75.0); Hemoglobin 12.3 g/dL (12.0-16.0); Mean Corpuscular HGB CONC 30.7 g/dL (32.0-36.0); Mean Corpuscular Hemoglobin 25.5 pg (27.0-31.0); Mean Corpuscular Volume 83.3 fL (78.0-98.0); Mean Platelet Volume 8.1 fL (7.4-10.4); Platelet Count 336 thou/uL (130-400); RBC Distribution Width 14.6 % (11.5-14.5); Red Blood Cell (RBC) Count 4.81 mill/uL (4.20-5.40); White Blood Cell (WBC) Count 11.8 thou/uL (4.8-10.8)
[2021-03-31 05:04] LABS: ALT (SGPT) 33 U/L (8-55); AST (SGOT) 31 U/L (5-34); Albumin 3.5 g/dL (3.4-4.8); Alkaline Phosphatase 95 U/L (40-110); Anion Gap 14 mmol/L (10-20); BUN (Urea Nitrogen) 10 mg/dL (9.8-20.1); Bilirubin, Total 0.3 mg/dL (0.2-1.2); Calc. Creatinine Clearance 88 mL/min (70-130); Calcium 8.9 mg/dL (7.8-10.44); Carbon Dioxide 25 mmol/L (23-31); Chloride 102 mmol/L (98-107); Globulin 3.7 g/dL (2.4-3.5); Glucose 93 mg/dL (83-110); Potassium 3.5 mmol/L (3.5-5.1); Protein, Total 7.2 g/dL (5.8-8.1); Sodium 137 mmol/L (136-145)
[2021-03-31] MEDS ORDERED: Lidocaine 2% Viscous Solution 20 ML, Aluminum & Magnesium Hydroxide 30 ML, Donnatal Eli... SSW SCH (08:00)
[2021-03-31] MEDS: Dronedarone HCl 400 MG TAB PO SCH ×2 (09:39→18:06)
[2021-03-31] MEDS: Famotidine 20 MG TAB PO SCH ×2 (09:39→20:59)
[2021-03-31] MEDS: Cholecalciferol 1,000 UNITS (25 MCG) TAB PO SCH (09:39)
[2021-03-31] MEDS: Multivitamin W/ Minerals 1 TAB PO SCH (09:39)
[2021-03-31] MEDS: Amlodipine 10 MG TAB PO SCH (09:40)
[2021-03-31] MEDS: Colchicine 0.6 MG TAB PO SCH ×2 (09:40→20:58)
[2021-03-31] MEDS: Apixaban 5 MG TAB PO SCH (09:40)
[2021-03-31] MEDS: hydrALAZINE 25 MG TAB PO SCH ×4 (09:40→20:59)
[2021-03-31] MEDS: Losartan 25 MG TAB PO SCH (09:41)
[2021-03-31] MEDS: Metoprolol Tartrate 25 MG TAB PO SCH ×2 (09:41→20:59)
[2021-03-31] MEDS: Ascorbic Acid 500 mg Chewable Tablet PO SCH (09:41)
[2021-03-31] MEDS: Polyethylene Glycol 3350 17 GM Packet PO SCH (09:42)
[2021-03-31] MEDS: Furosemide 20 MG TAB PO SCH (09:43)
[2021-03-31] MEDS: Ferrous Sulfate 325 MG TAB PO SCH (09:43)
[2021-03-31] MEDS: Aspirin Chewable 81 MG TAB PO SCH (09:43)
[2021-03-31] MEDS: Sucralfate 1 GM TAB PO SCH ×3 (15:19→20:58)
[2021-03-31] MEDS: Ezetimibe 10 MG TAB PO SCH (20:58)
[2021-03-31] MEDS: Atorvastatin Calcium 40 MG TAB PO SCH (20:58)
[2021-03-31] MEDS: Acetaminophen ER (8hr) 650 MG TAB PO SCH (20:59)
[2021-04-01 06:58] LABS: #Eosinphils 0.3 thou/uL (0.0-0.7); #Monocytes 0.9 thou/uL (0.11-0.59); #Neutrophils 8.8 thou/uL (1.40-6.50); %Basophils 0.3 % (0.0-1.0); %Lymphocytes 22.7 % (21.0-51.0); %Neutrophils 67.9 % (42.0-75.0); Hemoglobin 13.3 g/dL (12.0-16.0); Mean Corpuscular HGB CONC 30.4 g/dL (32.0-36.0); Mean Corpuscular Hemoglobin 25.9 pg (27.0-31.0); Mean Corpuscular Volume 85.2 fL (78.0-98.0); Mean Platelet Volume 9.1 fL (7.4-10.4); Platelet Count 309 thou/uL (130-400); Red Blood Cell (RBC) Count 5.14 mill/uL (4.20-5.40)
[2021-04-01] MEDS: Sucralfate 1 GM TAB PO SCH ×4 (07:33→20:41)
[2021-04-01] MEDS: Polyethylene Glycol 3350 17 GM Packet PO SCH (07:34)
[2021-04-01] MEDS: hydrALAZINE 25 MG TAB PO SCH ×4 (07:34→20:40)
[2021-04-01] MEDS: Aspirin Chewable 81 MG TAB PO SCH (07:34)
[2021-04-01] MEDS: Ferrous Sulfate 325 MG TAB PO SCH (08:03)
[2021-04-01] MEDS: Ascorbic Acid 500 mg Chewable Tablet PO SCH (08:03)
[2021-04-01] MEDS: Dronedarone HCl 400 MG TAB PO SCH ×2 (08:03→17:56)
[2021-04-01] MEDS: Famotidine 20 MG TAB PO SCH (08:03)
[2021-04-01] MEDS: Multivitamin W/ Minerals 1 TAB PO SCH (08:04)
[2021-04-01] MEDS: Furosemide 20 MG TAB PO SCH (08:04)
[2021-04-01] MEDS: Amlodipine 10 MG TAB PO SCH (08:04)
[2021-04-01] MEDS: Losartan 25 MG TAB PO SCH (08:04)
[2021-04-01] MEDS: Metoprolol Tartrate 25 MG TAB PO SCH ×2 (08:04→20:41)
[2021-04-01] MEDS: Cholecalciferol 1,000 UNITS (25 MCG) TAB PO SCH (08:04)
[2021-04-01] MEDS: Zinc Sulfate 220 MG CAP PO SCH (08:04)
[2021-04-01] MEDS: Colchicine 0.6 MG TAB PO SCH ×2 (08:12→20:40)
[2021-04-01 09:11] LABS: ALT (SGPT) 52 U/L (8-55); AST (SGOT) 51 U/L (5-34); Albumin 3.6 g/dL (3.4-4.8); Alkaline Phosphatase 100 U/L (40-110); Anion Gap 14 mmol/L (10-20); BUN (Urea Nitrogen) 9 mg/dL (9.8-20.1); Bilirubin, Total 0.2 mg/dL (0.2-1.2); Calc. Creatinine Clearance 89 mL/min (70-130); Carbon Dioxide 26 mmol/L (23-31); Chloride 101 mmol/L (98-107); Globulin 4.1 g/dL (2.4-3.5); Glucose 122 mg/dL (83-110); Potassium 3.8 mmol/L (3.5-5.1); Protein, Total 7.7 g/dL (5.8-8.1); Sodium 137 mmol/L (136-145)
[2021-04-01 11:43] VITALS: BMI 36.3
[2021-04-01 11:47] LABS: SARS-CoV-2 PCR by NAA Not Detected (NotDetected)
[2021-04-01] MEDS ORDERED: PROPOFOL 200 MG/20 ML VIAL ONE (12:43)
[2021-04-01] MEDS: Ezetimibe 10 MG TAB PO SCH (20:40)
[2021-04-01] MEDS: Acetaminophen ER (8hr) 650 MG TAB PO SCH (20:41)
[2021-04-01] MEDS: Atorvastatin Calcium 40 MG TAB PO SCH (20:41)
[2021-04-02 05:45] LABS: #Eosinphils 0.2 thou/uL (0.0-0.7); #Lymphocytes 2.9 thou/uL (1.20-3.40); #Monocytes 0.8 thou/uL (0.11-0.59); #Neutrophils 9.8 thou/uL (1.40-6.50); %Basophils 0.3 % (0.0-1.0); %Eosinophils 1.2 % (0.0-10.0); %Lymphocytes 21.2 % (21.0-51.0); %Monocytes 5.7 % (0.0-10.0); %Neutrophils 71.6 % (42.0-75.0); Hemoglobin 13.6 g/dL (12.0-16.0); Mean Corpuscular HGB CONC 31.3 g/dL (32.0-36.0); Mean Corpuscular Hemoglobin 26.1 pg (27.0-31.0); Mean Corpuscular Volume 83.5 fL (78.0-98.0); Mean Platelet Volume 8.4 fL (7.4-10.4); Platelet Count 341 thou/uL (130-400); RBC Distribution Width 14.7 % (11.5-14.5); Red Blood Cell (RBC) Count 5.21 mill/uL (4.20-5.40); White Blood Cell (WBC) Count 13.7 thou/uL (4.8-10.8)
[2021-04-02 06:03] LABS: Anion Gap 12 mmol/L (10-20); BUN (Urea Nitrogen) 9 mg/dL (9.8-20.1); Calc. Creatinine Clearance 91 mL/min (70-130); Calcium 9.2 mg/dL (7.8-10.44); Carbon Dioxide 28 mmol/L (23-31); Chloride 102 mmol/L (98-107); Glucose 109 mg/dL (83-110); Potassium 3.6 mmol/L (3.5-5.1); Sodium 138 mmol/L (136-145)
[2021-04-02] MEDS: Sucralfate 1 GM TAB PO SCH ×4 (07:23→20:23)
[2021-04-02] MEDS: Dronedarone HCl 400 MG TAB PO SCH ×2 (08:42→16:17)
[2021-04-02] MEDS: Losartan 25 MG TAB PO SCH (08:43)
[2021-04-02] MEDS: Aspirin Chewable 81 MG TAB PO SCH (08:43)
[2021-04-02] MEDS: Metoprolol Tartrate 25 MG TAB PO SCH ×2 (08:43→20:23)
[2021-04-02] MEDS: Ferrous Sulfate 325 MG TAB PO SCH (08:43)
[2021-04-02] MEDS: Ascorbic Acid 500 mg Chewable Tablet PO SCH (08:43)
[2021-04-02] MEDS: Furosemide 20 MG TAB PO SCH (08:43)
[2021-04-02] MEDS: Zinc Sulfate 220 MG CAP PO SCH (08:44)
[2021-04-02] MEDS: Colchicine 0.6 MG TAB PO SCH ×2 (08:44→20:23)
[2021-04-02] MEDS: Amlodipine 10 MG TAB PO SCH (08:44)
[2021-04-02] MEDS: Polyethylene Glycol 3350 17 GM Packet PO SCH (08:44)
[2021-04-02] MEDS: Cholecalciferol 1,000 UNITS (25 MCG) TAB PO SCH (08:44)
[2021-04-02] MEDS: hydrALAZINE 25 MG TAB PO SCH ×4 (08:44→20:23)
[2021-04-02] MEDS: Multivitamin W/ Minerals 1 TAB PO SCH (08:44)
[2021-04-02] MEDS: Acetaminophen ER (8hr) 650 MG TAB PO SCH (20:22)
[2021-04-02] MEDS: Ezetimibe 10 MG TAB PO SCH (20:23)
[2021-04-02] MEDS: Atorvastatin Calcium 40 MG TAB PO SCH (20:23)
[2021-04-02 20:27] VITALS: TEMP 97.7
[2021-04-03] MEDS: hydrALAZINE 25 MG TAB PO SCH ×2 (07:54→11:42)
[2021-04-03] MEDS: Zinc Sulfate 220 MG CAP PO SCH (07:55)
[2021-04-03] MEDS: Losartan 25 MG TAB PO SCH (07:55)
[2021-04-03] MEDS: Sucralfate 1 GM TAB PO SCH ×2 (07:55→11:42)
[2021-04-03] MEDS: Metoprolol Tartrate 25 MG TAB PO SCH (07:55)
[2021-04-03] MEDS: Aspirin Chewable 81 MG TAB PO SCH (07:55)
[2021-04-03] MEDS: Ferrous Sulfate 325 MG TAB PO SCH (07:55)
[2021-04-03] MEDS: Amlodipine 10 MG TAB PO SCH (07:56)
[2021-04-03] MEDS: Ascorbic Acid 500 mg Chewable Tablet PO SCH (07:56)
[2021-04-03] MEDS: Dronedarone HCl 400 MG TAB PO SCH (07:56)
[2021-04-03] MEDS: Multivitamin W/ Minerals 1 TAB PO SCH (07:56)
[2021-04-03] MEDS: Furosemide 20 MG TAB PO SCH (07:56)
[2021-04-03] MEDS: Cholecalciferol 1,000 UNITS (25 MCG) TAB PO SCH (07:56)
[2021-04-03 08:22] VITALS: BP 142/70
[2021-04-03] MEDS: Polyethylene Glycol 3350 17 GM Packet PO SCH (08:45)
[2021-04-03] MEDS: Colchicine 0.6 MG TAB PO SCH (10:03)
[2021-04-03 10:24] LABS: #Eosinphils 0.3 thou/uL (0.0-0.7); #Lymphocytes 3.6 thou/uL (1.20-3.40); #Monocytes 1.1 thou/uL (0.11-0.59); #Neutrophils 10.1 thou/uL (1.40-6.50); %Basophils 0.1 % (0.0-1.0); %Eosinophils 2.1 % (0.0-10.0); %Monocytes 7.1 % (0.0-10.0); %Neutrophils 66.7 % (42.0-75.0); Hemoglobin 13.5 g/dL (12.0-16.0); Mean Corpuscular HGB CONC 31.5 g/dL (32.0-36.0); Mean Corpuscular Hemoglobin 25.8 pg (27.0-31.0); Mean Corpuscular Volume 81.9 fL (78.0-98.0); Mean Platelet Volume 9.8 fL (7.4-10.4); Platelet Count 318 thou/uL (130-400); RBC Distribution Width 14.6 % (11.5-14.5); Red Blood Cell (RBC) Count 5.24 mill/uL (4.20-5.40); White Blood Cell (WBC) Count 15.1 thou/uL (4.8-10.8)
== END 2021-04-03 14:30 | DRG 302 ==
LOC: ERS 09:30 → ERHOLD 13:01 → 2NO 17:01 → OBSVTOIN 03-26 13:08 → MSONC 03-31 13:24
PROVIDERS: ADMIT Hospitalist; ATTEND Internal Medicine
PROC: 0DB78ZX Excision of Stomach, Pylorus, Via Natural or Artificial Opening Endoscopic, Diagnostic (ICD-10-PCS; principal; 2021-04-01)
DX: I25.110 Atherosclerotic heart disease of native coronary artery with unstable angina pectoris (principal); L89.313 Pressure ulcer of right buttock, stage 3; I50.32 Chronic diastolic (congestive) heart failure; R65.10 Systemic inflammatory response syndrome (SIRS) of non-infectious origin without acute organ dysfunction; E11.9 Type 2 diabetes mellitus without complications; E66.01 Morbid (severe) obesity due to excess calories; E78.5 Hyperlipidemia, unspecified; I48.0 Paroxysmal atrial fibrillation; I34.0 Nonrheumatic mitral (valve) insufficiency; E78.00 Pure hypercholesterolemia, unspecified; K25.9 Gastric ulcer, unspecified as acute or chronic, without hemorrhage or perforation; D72.829 Elevated white blood cell count, unspecified; Z20.822 Contact with and (suspected) exposure to COVID-19; I11.0 Hypertensive heart disease with heart failure; I25.2 Old myocardial infarction; Z95.1 Presence of aortocoronary bypass graft; Z79.82 Long term (current) use of aspirin; Z79.899 Other long term (current) drug therapy; Z86.73 Personal history of transient ischemic attack (TIA), and cerebral infarction without residual deficits; Z68.36 Body mass index [BMI] 36.0-36.9, adult
CPT/HCPCS: 36415; 36416; 51701; 71045; 71275; 74176; 78452; 80048; 80053; 80061; 81003; 83036; 83605; 83690; 84145; 84484; 85025; 85379; 86140; 87040; 87086; 88305; 88312; 93005; 93010; 93017; 93306; 94760; 96365; 96375; A9500; G0378; J0153; J0692; J1650; J1815; J2270; J2704; J3370; U0002; U0003; U0005

== ENCOUNTER 2021-04-12 15:28 | Inpatient (IN) | payer MEDICARE, MEDICAID ==
[2021-04-12 16:21] LABS: #Eosinphils 0.1 thou/uL (0.0-0.7); #Lymphocytes 2.3 thou/uL (1.20-3.40); #Monocytes 0.5 thou/uL (0.11-0.59); #Neutrophils 12.9 thou/uL (1.40-6.50); %Basophils 0.2 % (0.0-1.0); %Eosinophils 0.3 % (0.0-10.0); %Lymphocytes 14.4 % (21.0-51.0); Hemoglobin 13.2 g/dL (12.0-16.0); Mean Corpuscular HGB CONC 30.4 g/dL (32.0-36.0); Mean Corpuscular Hemoglobin 25.6 pg (27.0-31.0); Mean Corpuscular Volume 84.2 fL (78.0-98.0); Mean Platelet Volume 8.8 fL (7.4-10.4); Platelet Count 249 thou/uL (130-400); RBC Distribution Width 14.4 % (11.5-14.5); Red Blood Cell (RBC) Count 5.16 mill/uL (4.20-5.40); White Blood Cell (WBC) Count 15.7 thou/uL (4.8-10.8)
[2021-04-12 16:44] LABS: ALT (SGPT) 26 U/L (8-55); AST (SGOT) 24 U/L (5-34); Albumin 3.9 g/dL (3.4-4.8); Alkaline Phosphatase 95 U/L (40-110); Anion Gap 19 mmol/L (10-20); BUN (Urea Nitrogen) 10 mg/dL (9.8-20.1); Bilirubin, Total 0.3 mg/dL (0.2-1.2); Calc. Creatinine Clearance 0 mL/min (70-130); Calcium 8.9 mg/dL (7.8-10.44); Carbon Dioxide 26 mmol/L (23-31); Chloride 92 mmol/L (98-107); Globulin 3.2 g/dL (2.4-3.5); Glucose 89 mg/dL (83-110); Lipase 32 U/L (8-78); Potassium 3.5 mmol/L (3.5-5.1); Protein, Total 7.1 g/dL (5.8-8.1); Sodium 133 mmol/L (136-145)
[2021-04-12 17:56] LABS: INR-International Normal Ratio 1.3; Prothrombin Time 16.4 sec (12.0-14.7)
[2021-04-12 17:57] LABS: PTT 37.4 sec (22.9-36.1)
[2021-04-12] MEDS ORDERED: Morphine 4 MG/ML VIAL ONE (18:14)
[2021-04-12] MEDS ORDERED: Ondansetron PF 4 MG/2 ML Vial IVP PRN (18:30)
[2021-04-12] MEDS ORDERED: Acetaminophen 325 MG TAB PO PRN (18:30)
[2021-04-12] MEDS ORDERED: Ondansetron ODT 4 MG TAB SL PRN (18:30)
[2021-04-12 19:42] LABS: Troponin I 0.022 ng/mL (< 0.028)
[2021-04-12] MEDS ORDERED: Dextrose 50% Abboject 50 ML SYRINGE SLOW IVP PRN (20:11)
[2021-04-12] MEDS ORDERED: HumaLOG 300 UNITS/3 ML VIAL SC PRN ×2 (20:11)
[2021-04-12] MEDS ORDERED: hydrALAZINE 20 MG/ML VIAL SLOW IVP PRN (20:11)
[2021-04-12] MEDS ORDERED: Dextrose 5% in Water 1,000 ML IV PRN (20:11)
[2021-04-12] MEDS ORDERED: Morphine 4 MG/ML VIAL SLOW IVP PRN ×2 (20:11→20:15)
[2021-04-12] MEDS ORDERED: Nitroglycerin 0.4 MG TAB (25 Tab Bottle) SL PRN (20:12)
[2021-04-12] MEDS ORDERED: Electrolyte Replacement Protocol 1 EACH FS SCH (20:15)
[2021-04-12] MEDS ORDERED: Sodium Chloride 0.9% 1,000 ML IV SCH (20:15)
[2021-04-12] MEDS ORDERED: Electrolyte Replacement Protocol FS PRN (20:15)
[2021-04-12] MEDS: Atorvastatin Calcium 40 MG TAB PO SCH (21:24)
[2021-04-12 22:22] LABS: Troponin I 0.018 ng/mL (< 0.028)
[2021-04-12 22:28] VITALS: BMI 33.0
[2021-04-12 22:43] LABS: Hemoglobin 12.7 g/dL (12.0-16.0); Platelet Count 285 thou/uL (130-400)
[2021-04-13 04:07] LABS: Bacteria/HPF None Seen HPF (None Seen); Bilirubin Negative (Negative); Blood, Urine Negative (Negative); Clarity Clear (Clear); Glucose, Urine (Dipstick) Normal (Negative); Ketone, Urine 20 mg/dL (Negative); Leukocyte Negative Leu/uL (Negative); Nitrite Negative (Negative); Protein, Urine (Dipstick) Negative (Neg-Trace); Specific Gravity, Urine 1.045 (1.002-1.036); Squamous Epithelial 0-3 HPF (0-3); Urobilinogen Normal mg/dL (Less than 2)
[2021-04-13 04:49] LABS: #Basophils 0.1 thou/uL (0.0-0.2); #Eosinphils 0.1 thou/uL (0.0-0.7); #Lymphocytes 3.3 thou/uL (1.20-3.40); #Monocytes 0.9 thou/uL (0.11-0.59); #Neutrophils 12.8 thou/uL (1.40-6.50); %Basophils 0.3 % (0.0-1.0); %Eosinophils 0.5 % (0.0-10.0); %Lymphocytes 19.4 % (21.0-51.0); %Monocytes 5.4 % (0.0-10.0); %Neutrophils 74.3 % (42.0-75.0); Hemoglobin 11.8 g/dL (12.0-16.0); Mean Corpuscular Hemoglobin 26.4 pg (27.0-31.0); Mean Corpuscular Volume 85.3 fL (78.0-98.0); Mean Platelet Volume 8.8 fL (7.4-10.4); Platelet Count 260 thou/uL (130-400); RBC Distribution Width 14.4 % (11.5-14.5); Red Blood Cell (RBC) Count 4.46 mill/uL (4.20-5.40); White Blood Cell (WBC) Count 17.2 thou/uL (4.8-10.8)
[2021-04-13 04:55] LABS: RBC/HPF 0-3 HPF (0-3); Urine Culture Reflex No No; WBC/HPF 0-3 HPF (0-3)
[2021-04-13 05:11] LABS: Anion Gap 18 mmol/L (10-20); BUN (Urea Nitrogen) 7 mg/dL (9.8-20.1); Calc. Creatinine Clearance 89 mL/min (70-130); Calcium 8.9 mg/dL (7.8-10.44); Carbon Dioxide 27 mmol/L (23-31); Chloride 94 mmol/L (98-107); Glucose 69 mg/dL (83-110); Potassium 3.5 mmol/L (3.5-5.1); Sodium 135 mmol/L (136-145)
[2021-04-13] MEDS ORDERED: Potassium Chloride 20 MEQ TAB PO SCH (07:00)
[2021-04-13] MEDS ORDERED: Pantoprazole 40 MG VIAL IVP SCH (09:00)
[2021-04-13] MEDS: Dronedarone HCl 400 MG TAB PO SCH ×2 (09:18→18:11)
[2021-04-13] MEDS ORDERED: Calcium Carbonate 500 MG ChewTAB PO PRN (11:26)
[2021-04-13] MEDS ORDERED: Zonisamide 100 MG CAP PO SCH (21:00)
[2021-04-13] MEDS ORDERED: Zonisamide 25 MG CAP PO SCH (21:00)
[2021-04-13] MEDS: Apixaban 5 MG TAB PO SCH (21:09)
[2021-04-13] MEDS: cloNIDine 0.1 MG TAB PO SCH (21:09)
[2021-04-13] MEDS: Atorvastatin Calcium 40 MG TAB PO SCH (21:09)
[2021-04-14 05:19] LABS: #Eosinphils 0.1 thou/uL (0.0-0.7); #Lymphocytes 2.1 thou/uL (1.20-3.40); #Monocytes 0.9 thou/uL (0.11-0.59); #Neutrophils 10.2 thou/uL (1.40-6.50); %Basophils 0.2 % (0.0-1.0); %Eosinophils 0.9 % (0.0-10.0); %Lymphocytes 15.9 % (21.0-51.0); %Monocytes 6.5 % (0.0-10.0); %Neutrophils 76.7 % (42.0-75.0); Anion Gap 14 mmol/L (10-20); BUN (Urea Nitrogen) 5 mg/dL (9.8-20.1); Calc. Creatinine Clearance 93 mL/min (70-130); Calcium 8.8 mg/dL (7.8-10.44); Carbon Dioxide 29 mmol/L (23-31); Chloride 97 mmol/L (98-107); Glucose 111 mg/dL (83-110); Hemoglobin 11.2 g/dL (12.0-16.0); Mean Corpuscular HGB CONC 30.2 g/dL (32.0-36.0); Mean Corpuscular Hemoglobin 25.8 pg (27.0-31.0); Mean Corpuscular Volume 85.3 fL (78.0-98.0); Mean Platelet Volume 8.8 fL (7.4-10.4); Platelet Count 263 thou/uL (130-400); Potassium 3.3 mmol/L (3.5-5.1); RBC Distribution Width 14.8 % (11.5-14.5); Red Blood Cell (RBC) Count 4.34 mill/uL (4.20-5.40); Sodium 137 mmol/L (136-145); White Blood Cell (WBC) Count 13.3 thou/uL (4.8-10.8)
[2021-04-14] MEDS ORDERED: Potassium Chloride 20 MEQ TAB PO SCH (07:15)
[2021-04-14] MEDS: Apixaban 5 MG TAB PO SCH (08:50)
[2021-04-14] MEDS: cloNIDine 0.1 MG TAB PO SCH (08:50)
[2021-04-14] MEDS: Dronedarone HCl 400 MG TAB PO SCH (08:51)
[2021-04-14] MEDS ORDERED: Aspirin 325 MG TAB PO SCH (09:00)
[2021-04-14] MEDS ORDERED: Polyethylene Glycol 3350 17 GM Packet PO SCH (09:00)
[2021-04-14] MEDS ORDERED: Cholecalciferol 1,000 UNITS (25 MCG) TAB PO SCH (09:00)
[2021-04-14] MEDS ORDERED: Amlodipine 10 MG TAB PO SCH (09:00)
[2021-04-14] MEDS ORDERED: Furosemide 20 MG TAB PO SCH (09:00)
[2021-04-14 12:02] VITALS: BP 134/62; TEMP 97.9
[2021-04-14] MEDS ORDERED: hydrALAZINE 25 MG TAB PO SCH (13:00)
[2021-04-14] MEDS ORDERED: Metoprolol Tartrate 25 MG TAB PO SCH (21:00)
== END 2021-04-14 14:20 | DRG 392 ==
LOC: ERS 15:28 → 2NO 18:35 → OBSVTOIN 04-13 11:25
PROVIDERS: ADMIT Internal Medicine; ATTEND Family Medicine
DX: R11.2 Nausea with vomiting, unspecified (principal); I69.351 Hemiplegia and hemiparesis following cerebral infarction affecting right dominant side; I50.32 Chronic diastolic (congestive) heart failure; R07.89 Other chest pain; T38.3X5A Adverse effect of insulin and oral hypoglycemic [antidiabetic] drugs, initial encounter; Z20.822 Contact with and (suspected) exposure to COVID-19; D72.829 Elevated white blood cell count, unspecified; I25.10 Atherosclerotic heart disease of native coronary artery without angina pectoris; E11.9 Type 2 diabetes mellitus without complications; E87.6 Hypokalemia; E78.5 Hyperlipidemia, unspecified; I11.0 Hypertensive heart disease with heart failure; I48.91 Unspecified atrial fibrillation; T47.1X5A Adverse effect of other antacids and anti-gastric-secretion drugs, initial encounter; R10.84 Generalized abdominal pain; E66.9 Obesity, unspecified; Z68.33 Body mass index [BMI] 33.0-33.9, adult; Z95.1 Presence of aortocoronary bypass graft; I25.2 Old myocardial infarction; Z79.899 Other long term (current) drug therapy; Z79.82 Long term (current) use of aspirin; Z79.4 Long term (current) use of insulin; Z79.84 Long term (current) use of oral hypoglycemic drugs; Z79.01 Long term (current) use of anticoagulants; Z79.891 Long term (current) use of opiate analgesic; Z83.3 Family history of diabetes mellitus; Z82.49 Family history of ischemic heart disease and other diseases of the circulatory system; Z87.891 Personal history of nicotine dependence
CPT/HCPCS: 36415; 36416; 71045; 74177; 80048; 80053; 81001; 83690; 84484; 85025; 85610; 85730; 86850; 86900; 86901; 87040; 93005; 94760; 96374; 96375; C9113; G0378; J2270; J7050; Q9967

== ENCOUNTER 2021-07-30 09:41 | Outpatient (CLI) | payer MEDICARE, BC, OTHER | END 2021-07-30 09:42 | disposition home or self-care (01) | LOC: MRI 09:41 | PROVIDERS: ATTEND Family Medicine | DX: K86.9 Disease of pancreas, unspecified (principal) | CPT/HCPCS: 74181; 74183 ==

== ENCOUNTER 2022-01-24 10:46 | Inpatient (IN) | payer MEDICARE, BC, MEDICAID ==
[2022-01-24 11:41] LABS: #Lymphocytes 2.4 thou/uL (1.20-3.40); #Monocytes 0.5 thou/uL (0.11-0.59); #Neutrophils 12.7 thou/uL (1.40-6.50); %Basophils 0.1 % (0.0-1.0); %Eosinophils 0.3 % (0.0-10.0); %Monocytes 3.5 % (0.0-10.0); %Neutrophils 81.2 % (42.0-75.0); Hemoglobin 11.8 g/dL (12.0-16.0); Mean Corpuscular HGB CONC 30.2 g/dL (32.0-36.0); Mean Corpuscular Hemoglobin 25.3 pg (27.0-31.0); Mean Corpuscular Volume 83.8 fl (78.0-98.0); Mean Platelet Volume 8.6 fL (7.4-10.4); Platelet Count 272 10x3/uL (130-400); RBC Distribution Width 14.6 % (11.5-14.5); Red Blood Cell (RBC) Count 4.65 mill/uL (4.20-5.40); White Blood Cell (WBC) Count 15.7 10x3/uL (4.8-10.8)
[2022-01-24 11:55] LABS: INR-International Normal Ratio 1.3; Prothrombin Time 16.6 sec (12.0-14.7)
[2022-01-24 11:56] LABS: PTT 35.3 sec (22.9-36.1)
[2022-01-24 12:07] LABS: ALT (SGPT) 35 U/L (8-55); AST (SGOT) 26 U/L (5-34); Albumin 3.5 g/dL (3.4-4.8); Alkaline Phosphatase 84 U/L (40-110); Anion Gap 15 mmol/L (10-20); BUN (Urea Nitrogen) 24 mg/dL (9.8-20.1); Bilirubin, Total 0.3 mg/dL (0.2-1.2); Calc. Creatinine Clearance 0 mL/min (70-130); Calcium 9.1 mg/dL (7.8-10.44); Carbon Dioxide 23 mmol/L (23-31); Chloride 103 mmol/L (98-107); Estimated GFR 55; Globulin 4.1 g/dL (2.4-3.5); Glucose 119 mg/dL (83-110); Lipase 62 U/L (8-78); Potassium 4.2 mmol/L (3.5-5.1); Protein, Total 7.6 g/dL (5.8-8.1); Sodium 137 mmol/L (136-145)
[2022-01-24 12:11] LABS: Bacteria/HPF 4+ HPF (None Seen); Bilirubin Negative (Negative); Blood, Urine 3+ (Negative); Glucose, Urine (Dipstick) 500 mg/dL (Negative); Ketone, Urine Negative (Negative); Leukocyte 75 Leu/uL (Negative); Nitrite 2+ (Negative); Protein, Urine (Dipstick) Negative (Neg-Trace); RBC/HPF Greater than 50 HPF (0-3); Specific Gravity, Urine 1.014 (1.002-1.036); Squamous Epithelial 0-3 HPF (0-3); Urobilinogen Normal mg/dL (Less than 2); pH, Urine 6.5 (5.0-9.0)
[2022-01-24 12:13] LABS: Clarity Cloudy (Clear)
[2022-01-24] MEDS ORDERED: cefTRIAXone\\ROCEPHIN 1 GM VIAL ONE (14:25)
[2022-01-24] MEDS ORDERED: Iopamidol-370 76% 500 ML 1 ML ONE (14:59)
[2022-01-24] MEDS ORDERED: Ondansetron PF 4 MG/2 ML Vial IVP PRN (15:53)
[2022-01-24] MEDS ORDERED: Guaifenesin DM 100-10/5 ML UDCUP PO PRN (15:53)
[2022-01-24] MEDS ORDERED: Acetaminophen 325 MG TAB PO PRN (15:53)
[2022-01-24] MEDS ORDERED: Senokot S 8.6-50 MG TAB PO PRN (15:53)
[2022-01-24] MEDS ORDERED: Bisacodyl 10 MG SUPP PR PRN (15:56)
[2022-01-24] MEDS ORDERED: Sodium Chloride 0.9% 1,000 ML IV SCH (16:00)
[2022-01-24 16:30] VITALS: BMI 34.2
[2022-01-24] MEDS ORDERED: Furosemide 80 MG TAB PO PRN (18:28)
[2022-01-24] MEDS ORDERED: Calcium Carbonate 500 MG ChewTAB PO PRN (18:28)
[2022-01-24] MEDS: Sodium Chloride 0.9% 1,000 ML IV SCH (18:57)
[2022-01-24] MEDS: Atorvastatin Calcium 40 MG TAB PO SCH (20:22)
[2022-01-24] MEDS: Apixaban 5 MG TAB PO SCH (20:22)
[2022-01-24] MEDS: hydrALAZINE 25 MG TAB PO SCH (20:22)
[2022-01-24] MEDS: Dicyclomine 10 MG CAP PO SCH (20:22)
[2022-01-24] MEDS: Insulin Glargine 30 UNITS/0.3 ML VIAL SC SCH (20:23)
[2022-01-24] MEDS: Zonisamide 100 MG CAP PO SCH (20:23)
[2022-01-24] MEDS ORDERED: cloNIDine 0.1 MG TAB PO SCH (21:00)
[2022-01-25 07:18] LABS: #Eosinphils 0.1 thou/uL (0.0-0.7); #Lymphocytes 2.5 thou/uL (1.20-3.40); #Monocytes 0.7 thou/uL (0.11-0.59); %Basophils 0.1 % (0.0-1.0); %Eosinophils 0.7 % (0.0-10.0); %Lymphocytes 18.7 % (21.0-51.0); %Monocytes 5.1 % (0.0-10.0); %Neutrophils 75.5 % (42.0-75.0); Hemoglobin 12.1 g/dL (12.0-16.0); Mean Corpuscular HGB CONC 30.1 g/dL (32.0-36.0); Mean Corpuscular Hemoglobin 25.4 pg (27.0-31.0); Mean Corpuscular Volume 84.3 fl (78.0-98.0); Mean Platelet Volume 8.5 fL (7.4-10.4); Platelet Count 264 10x3/uL (130-400); RBC Distribution Width 14.8 % (11.5-14.5); Red Blood Cell (RBC) Count 4.75 mill/uL (4.20-5.40); White Blood Cell (WBC) Count 13.3 10x3/uL (4.8-10.8)
[2022-01-25 07:42] LABS: Anion Gap 13 mmol/L (10-20); BUN (Urea Nitrogen) 17 mg/dL (9.8-20.1); Calc. Creatinine Clearance 78 mL/min (70-130); Calcium 8.8 mg/dL (7.8-10.44); Carbon Dioxide 24 mmol/L (23-31); Chloride 104 mmol/L (98-107); Estimated GFR 75; Glucose 80 mg/dL (83-110); Potassium 3.8 mmol/L (3.5-5.1); Sodium 137 mmol/L (136-145)
[2022-01-25] MEDS: cefTRIAXone\\ROCEPHIN 1 GM in Sodium Chloride 0.9% 100 ML IVPB SCH (09:05)
[2022-01-25] MEDS: Dicyclomine 10 MG CAP PO SCH ×2 (09:06→20:52)
[2022-01-25] MEDS: Spironolactone 25 MG TAB PO SCH (09:06)
[2022-01-25] MEDS: Ascorbic Acid 500 mg Chewable Tablet PO SCH (09:06)
[2022-01-25] MEDS: hydrALAZINE 25 MG TAB PO SCH ×4 (09:06→20:52)
[2022-01-25] MEDS: Dronedarone HCl 400 MG TAB PO SCH ×2 (09:06→17:56)
[2022-01-25] MEDS: Aspirin 325 MG TAB PO SCH (09:06)
[2022-01-25] MEDS: Insulin Glargine 30 UNITS/0.3 ML VIAL SC SCH ×2 (09:06→20:55)
[2022-01-25] MEDS: Empagliflozin 10 MG TAB PO SCH (09:06)
[2022-01-25] MEDS: Apixaban 5 MG TAB PO SCH ×2 (09:06→20:52)
[2022-01-25] MEDS: Amlodipine 10 MG TAB PO SCH (09:06)
[2022-01-25] MEDS: Cholecalciferol 1,000 UNITS (25 MCG) TAB PO SCH (09:06)
[2022-01-25] MEDS: Sodium Chloride 0.9% 1,000 ML IV SCH (13:07)
[2022-01-25] MEDS: Senokot S 8.6-50 MG TAB PO SCH (20:52)
[2022-01-25] MEDS: Atorvastatin Calcium 40 MG TAB PO SCH (20:53)
[2022-01-25] MEDS: Zonisamide 100 MG CAP PO SCH (20:53)
[2022-01-26] MEDS: cefTRIAXone\\ROCEPHIN 1 GM in Sodium Chloride 0.9% 100 ML IVPB SCH (08:03)
[2022-01-26] MEDS: Aspirin 325 MG TAB PO SCH (08:05)
[2022-01-26] MEDS: Insulin Glargine 30 UNITS/0.3 ML VIAL SC SCH ×2 (08:05→20:43)
[2022-01-26] MEDS: Polyethylene Glycol 3350 17 GM Packet PO SCH (08:05)
[2022-01-26] MEDS: Amlodipine 10 MG TAB PO SCH (08:05)
[2022-01-26] MEDS: Cholecalciferol 1,000 UNITS (25 MCG) TAB PO SCH (08:06)
[2022-01-26] MEDS: Ascorbic Acid 500 mg Chewable Tablet PO SCH (08:06)
[2022-01-26] MEDS: Apixaban 5 MG TAB PO SCH ×2 (08:06→20:31)
[2022-01-26] MEDS: Empagliflozin 10 MG TAB PO SCH (08:06)
[2022-01-26] MEDS: hydrALAZINE 25 MG TAB PO SCH ×4 (08:06→20:31)
[2022-01-26] MEDS: Dronedarone HCl 400 MG TAB PO SCH ×2 (08:06→17:52)
[2022-01-26] MEDS: Senokot S 8.6-50 MG TAB PO SCH ×2 (08:06→20:31)
[2022-01-26] MEDS: Dicyclomine 10 MG CAP PO SCH ×2 (08:06→20:31)
[2022-01-26] MEDS: Spironolactone 25 MG TAB PO SCH (08:06)
[2022-01-26] MEDS: Zonisamide 100 MG CAP PO SCH (20:31)
[2022-01-26] MEDS: Atorvastatin Calcium 40 MG TAB PO SCH (20:31)
[2022-01-27] MEDS: Empagliflozin 10 MG TAB PO SCH (08:13)
[2022-01-27] MEDS: Senokot S 8.6-50 MG TAB PO SCH ×2 (08:13→20:05)
[2022-01-27] MEDS: Insulin Glargine 30 UNITS/0.3 ML VIAL SC SCH ×2 (08:14→20:06)
[2022-01-27] MEDS: Dronedarone HCl 400 MG TAB PO SCH ×2 (08:14→17:13)
[2022-01-27] MEDS: Aspirin 325 MG TAB PO SCH (08:14)
[2022-01-27] MEDS: Amlodipine 10 MG TAB PO SCH (08:14)
[2022-01-27] MEDS: Ascorbic Acid 500 mg Chewable Tablet PO SCH (08:14)
[2022-01-27] MEDS: Apixaban 5 MG TAB PO SCH ×2 (08:14→20:05)
[2022-01-27] MEDS: hydrALAZINE 25 MG TAB PO SCH ×4 (08:14→20:05)
[2022-01-27] MEDS: Dicyclomine 10 MG CAP PO SCH ×2 (08:14→20:05)
[2022-01-27] MEDS: Cholecalciferol 1,000 UNITS (25 MCG) TAB PO SCH (08:14)
[2022-01-27] MEDS: Spironolactone 25 MG TAB PO SCH (08:14)
[2022-01-27] MEDS: Polyethylene Glycol 3350 17 GM Packet PO SCH (08:15)
[2022-01-27] MEDS: cefTRIAXone\\ROCEPHIN 1 GM in Sodium Chloride 0.9% 100 ML IVPB SCH (08:15)
[2022-01-27] MEDS: traMADol HCl 50 MG TAB PO PRN (18:11)
[2022-01-27] MEDS: Zonisamide 100 MG CAP PO SCH (20:04)
[2022-01-27] MEDS: Atorvastatin Calcium 40 MG TAB PO SCH (20:05)
[2022-01-27] MEDS: Nitrofurantoin Monohyd/M-Cryst 100 MG CAP PO SCH (20:06)
[2022-01-28] MEDS: traMADol HCl 50 MG TAB PO PRN ×3 (05:55→20:38)
[2022-01-28] MEDS: Dronedarone HCl 400 MG TAB PO SCH ×2 (08:19→18:36)
[2022-01-28] MEDS: Amlodipine 10 MG TAB PO SCH (08:19)
[2022-01-28] MEDS: Dicyclomine 10 MG CAP PO SCH ×2 (08:20→20:34)
[2022-01-28] MEDS: Spironolactone 25 MG TAB PO SCH (08:20)
[2022-01-28] MEDS: Apixaban 5 MG TAB PO SCH ×2 (08:20→20:35)
[2022-01-28] MEDS: Cholecalciferol 1,000 UNITS (25 MCG) TAB PO SCH (08:20)
[2022-01-28] MEDS: Polyethylene Glycol 3350 17 GM Packet PO SCH (08:20)
[2022-01-28] MEDS: Senokot S 8.6-50 MG TAB PO SCH ×2 (08:20→20:35)
[2022-01-28] MEDS: hydrALAZINE 25 MG TAB PO SCH ×4 (08:20→20:34)
[2022-01-28] MEDS: Nitrofurantoin Monohyd/M-Cryst 100 MG CAP PO SCH (08:20)
[2022-01-28] MEDS: Ascorbic Acid 500 mg Chewable Tablet PO SCH (08:20)
[2022-01-28] MEDS: Empagliflozin 10 MG TAB PO SCH (08:20)
[2022-01-28] MEDS: Aspirin 325 MG TAB PO SCH (08:20)
[2022-01-28] MEDS: Insulin Glargine 30 UNITS/0.3 ML VIAL SC SCH ×2 (08:21→20:35)
[2022-01-28] MEDS ORDERED: Meropenem 1 GM in Sodium Chloride 0.9% 100 ML IVPB SCH ×2 (15:45→22:00)
[2022-01-28] MEDS: Zonisamide 100 MG CAP PO SCH (20:34)
[2022-01-28] MEDS: Atorvastatin Calcium 40 MG TAB PO SCH (20:35)
[2022-01-29] MEDS: Meropenem 1 GM in Sodium Chloride 0.9% 100 ML IVPB SCH ×2 (00:06→09:03)
[2022-01-29] MEDS: traMADol HCl 50 MG TAB PO PRN ×2 (03:00→15:04)
[2022-01-29 07:37] LABS: #Basophils 0.1 thou/uL (0.0-0.2); #Eosinphils 0.1 thou/uL (0.0-0.7); #Lymphocytes 2.3 thou/uL (1.20-3.40); #Monocytes 1.2 thou/uL (0.11-0.59); #Neutrophils 14.1 thou/uL (1.40-6.50); %Basophils 0.3 % (0.0-1.0); %Eosinophils 0.8 % (0.0-10.0); %Lymphocytes 12.9 % (21.0-51.0); %Monocytes 6.8 % (0.0-10.0); %Neutrophils 79.2 % (42.0-75.0); Hemoglobin 10.8 g/dL (12.0-16.0); Mean Corpuscular HGB CONC 30.1 g/dL (32.0-36.0); Mean Corpuscular Hemoglobin 25.2 pg (27.0-31.0); Mean Corpuscular Volume 83.6 fl (78.0-98.0); Mean Platelet Volume 8.7 fL (7.4-10.4); Platelet Count 253 10x3/uL (130-400); RBC Distribution Width 14.8 % (11.5-14.5); White Blood Cell (WBC) Count 17.8 10x3/uL (4.8-10.8)
[2022-01-29 07:56] LABS: Anion Gap 12 mmol/L (10-20); BUN (Urea Nitrogen) 15 mg/dL (9.8-20.1); Calc. Creatinine Clearance 70 mL/min (70-130); Carbon Dioxide 24 mmol/L (23-31); Chloride 102 mmol/L (98-107); Estimated GFR 66; Glucose 119 mg/dL (83-110); Potassium 4.7 mmol/L (3.5-5.1); Sodium 133 mmol/L (136-145)
[2022-01-29] MEDS: Apixaban 5 MG TAB PO SCH (08:02)
[2022-01-29] MEDS: Spironolactone 25 MG TAB PO SCH (08:02)
[2022-01-29] MEDS: Dicyclomine 10 MG CAP PO SCH (08:02)
[2022-01-29] MEDS: Amlodipine 10 MG TAB PO SCH (08:02)
[2022-01-29] MEDS: Polyethylene Glycol 3350 17 GM Packet PO SCH (08:02)
[2022-01-29] MEDS: Empagliflozin 10 MG TAB PO SCH (08:02)
[2022-01-29] MEDS: Ascorbic Acid 500 mg Chewable Tablet PO SCH (08:02)
[2022-01-29] MEDS: Cholecalciferol 1,000 UNITS (25 MCG) TAB PO SCH (08:02)
[2022-01-29] MEDS: Dronedarone HCl 400 MG TAB PO SCH (08:02)
[2022-01-29] MEDS: Aspirin 325 MG TAB PO SCH (08:02)
[2022-01-29] MEDS: hydrALAZINE 25 MG TAB PO SCH ×2 (08:02→12:34)
[2022-01-29] MEDS: Senokot S 8.6-50 MG TAB PO SCH (08:02)
[2022-01-29] MEDS: Insulin Glargine 30 UNITS/0.3 ML VIAL SC SCH (08:03)
[2022-01-29 12:30] VITALS: TEMP 98
[2022-01-29 12:34] VITALS: BP 123/71
== END 2022-01-29 15:39 | DRG 690 ==
LOC: ERS 10:46 → T4-B 15:03
PROVIDERS: ADMIT Family Medicine; ATTEND Family Medicine
DX: N10 Acute pyelonephritis (principal); I50.32 Chronic diastolic (congestive) heart failure; Z16.24 Resistance to multiple antibiotics; Z66 Do not resuscitate; K86.89 Other specified diseases of pancreas; I48.0 Paroxysmal atrial fibrillation; K56.41 Fecal impaction; I25.10 Atherosclerotic heart disease of native coronary artery without angina pectoris; E78.5 Hyperlipidemia, unspecified; E11.65 Type 2 diabetes mellitus with hyperglycemia; D63.8 Anemia in other chronic diseases classified elsewhere; B96.89 Other specified bacterial agents as the cause of diseases classified elsewhere; I11.0 Hypertensive heart disease with heart failure; Z86.73 Personal history of transient ischemic attack (TIA), and cerebral infarction without residual deficits; Z79.899 Other long term (current) drug therapy; Z79.82 Long term (current) use of aspirin; Z79.01 Long term (current) use of anticoagulants; Z79.4 Long term (current) use of insulin; Z95.1 Presence of aortocoronary bypass graft; Z83.3 Family history of diabetes mellitus; Z90.49 Acquired absence of other specified parts of digestive tract
CPT/HCPCS: 36415; 36416; 51701; 74177; 80048; 80053; 81003; 81015; 82274; 83605; 83690; 85025; 85610; 85730; 87040; 87077; 87086; 87186; 93970; 96365; J0696; J1815; J2185; J3490; J7050; Q9967; U0003; U0005